=== PATIENT | female | born 1950 ===

== ENCOUNTER 2017-05-04 21:14 | Inpatient (IN) | payer MEDICARE, OTHER ==
[~2017-05-04] VITALS: Ht 167.6 cm; Wt 57.2 kg
--- NOTE | 2017-05-04 21:20 | NUR ---
MEDICALLY CLEARED BY DR WILSON
[2017-05-04] MEDS ORDERED: FAMO-132 PO (21:29)
[2017-05-04] MEDS ORDERED: QUET300T2 PO ×2 (21:29)
[2017-05-04] MEDS ORDERED: QUET25TA PO (21:29)
[2017-05-04] MEDS ORDERED: LEVO50TA8 PO (21:29)
[2017-05-04] MEDS ORDERED: ASPI81TA31 PO (21:29)
[2017-05-04] MEDS ORDERED: ATOR80TA PO (21:29)
--- NOTE | 2017-05-04 21:46 | NUR ---
TRANSFERED [place] [facility] [place] [facility]
--- NOTE | 2017-05-04 21:50 | NUR ---
Received to care, 58yo female placed on a 5150 hold for GD. Patient is awake and oriented x1. Patient is resting comfortably in her bed.. Patients skin is warm pink dry and, intact. Patient reports no pain or discomfort. v/s are WNL. PERRLA. No signs of distress or discomfort. Breathing is unlabored. Patient is ambulatory with unsteady gate. Bed alarm is on. Bed in lowest position with 2/4 side rails up for safety. Will continue to monitor
[2017-05-04] MEDS ORDERED: LORAZEPAM 0.5 MG TABLET PO PRN (23:00)
[2017-05-05 00:24] VITALS: BP 140/95
[2017-05-05] MEDS ORDERED: ZOLPIDEM 5 MG TABLET ONE (01:22)
[2017-05-05] MEDS: ZOLPIDEM 5 MG TABLET PO PRN ×2 (01:31→22:21)
--- NOTE | 2017-05-05 02:32 | NUR ---
AT APPROX 0030, MEDICATION WERE RECONCILE WITH DR. RIVERA (DR SKIN LIFTER BACON FOR REBECCA).
[2017-05-05 07:30] VITALS: BP 147/72
[2017-05-05] MEDS: AMLODIPINE 5 MG TABLET PO SCH (10:30)
[2017-05-05] MEDS: FAMOTIDINE 20 MG TABLET PO SCH ×2 (10:31→20:03)
[2017-05-05] MEDS ORDERED: LORAZEPAM 0.5 MG TABLET PO PRN (12:00)
[2017-05-05] MEDS: QUETIAPINE FUMARATE 25 MG TABLET PO SCH ×2 (12:51→16:47)
[2017-05-05 15:16] VITALS: BP 129/83
[2017-05-05] MEDS: QUETIAPINE FUMARATE 200 MG TABLET PO SCH (20:03)
[2017-05-05] MEDS: ATORVASTATIN 40 MG TABLET PO SCH (20:03)
[2017-05-05] MEDS ORDERED: Medication Not On Formulary EA (Atorvastatin Calcium (Lipitor) 80 MG) PO SCH (21:00)
--- NOTE | 2017-05-05 21:12 | NUR ---
PATIENT RECEIVED IN LORI CHAIR SECURE, ALERT ORIENTED X1 TO NAME ONLY, CONFUSED DELUSIONAL RESPONDS TO INTERNAL STIMULI. YELLING/SCREAMING OCCASIONALLY, REDIRECTABLE. PATIENT COMPLAINT WITH MEDICATION. POOR SAFETY AWARENESS, POOR JUDGEMENT. NO AGGRESSIVE OR COMBATIVE BEHAVIOR NOTED WILL CONTINUE TO MONITOR AND REDIRECT NEEDED.
[2017-05-05 22:03] VITALS: BP 122/83
[2017-05-05] MEDS: LORAZEPAM 1 MG TABLET PO PRN (23:22)
[2017-05-06 07:23] LABS: BASOPHILS % (AUTO) 0.7 % (0.0-2.0); EOSINOPHILS # (AUTO) 0.2 K/uL (0.0-0.7); EOSINOPHILS % (AUTO) 2.8 % (0.0-7.0); HEMATOCRIT 41.8 % (37-47); LYMPHOCYTES # (AUTO) 1.1 K/UL (0.8-4.8); LYMPHOCYTES % (AUTO) 17.4 % (20.5-51.5); MEAN CORPUSCULAR HGB CONC 33 g/dL (32.0-37.0); MEAN CORPUSCULAR VOLUME 89.9 FL (81.0-99.0); MONOCYTES # (AUTO) 0.6 K/UL (0.1-1.30); MONOCYTES % (AUTO) 9.5 % (0.0-11.0); NEUTROPHILS # (AUTO) 4.4 K/UL (1.8-8.9); NEUTROPHILS % (AUTO) 69.6 % (38.5-71.5); PLATELET COUNT (AUTO) 218 K/UL (150-450); RED BLOOD CELL COUNT(AUTO) 4.66 MIL/UL (4.2-5.4); WHITE BLOOD COUNT (AUTO) 6.3 K/UL (4.0-11.2)
[2017-05-06 07:30] VITALS: BP 127/71
[2017-05-06 07:59] LABS: BILIRUBIN,TOTAL 0.5 mg/dL (0.2-1.0); CREATININE 0.7 mg/dL (0.6-1.3); MAGNESIUM 1.7 mg/dL (1.8-2.4); PHOSPHOROUS 3.7 mg/dL (2.5-4.9); TOTAL PROTEIN, SERUM 6.8 g/dL (6.4-8.2)
[2017-05-06 08:05] LABS: POTASSIUM 2.8 mmol/L (3.5-5.1)
--- NOTE | 2017-05-06 08:13 | NUR ---
LAB CALLED TO INFORM PT'S POTASSIUM LEVEL OF 2.8. PT IS ASYMPTOMATIC AT THIS TIME. CALLED [facility], STATED THEY WILL PAGE DR. HATHAWAY AND HE WILL CALL BACK.
[2017-05-06 08:36] LABS: THYROID STIMULATING HORMONE 1.91 mIU/mL (0.358-3.740)
--- NOTE | 2017-05-06 09:22 | NUR ---
DR. HATHAWAY CALLED BACK WITH ORDER FOR 40MEQ POTASSIUM ONE DOSE TO BE GIVEN NOW AND ANOTHER IN 4 HOURS. NOTED AND WILL CARRY OUT. PT REMAINS ASYMPTOMATIC.
[2017-05-06] MEDS: ASPIRIN 81 MG TAB.CHEW PO SCH (09:24)
[2017-05-06] MEDS: FAMOTIDINE 20 MG TABLET PO SCH ×2 (09:24→20:00)
[2017-05-06] MEDS: AMLODIPINE 5 MG TABLET PO SCH (09:24)
[2017-05-06] MEDS: QUETIAPINE FUMARATE 25 MG TABLET PO SCH ×2 (09:24→17:16)
[2017-05-06] MEDS: LEVOTHYROXINE SODIUM 50 MCG TABLET PO SCH (09:25)
[2017-05-06] MEDS: POTASSIUM CHLORIDE 20 MEQ TAB.PRT.SR PO SCH ×2 (09:45→15:32)
[2017-05-06] MEDS ORDERED: POTASSIUM CHLORIDE 20 MEQ TAB.PRT.SR PO ONE (10:15)
[2017-05-06] MEDS ORDERED: MAGNESIUM OXIDE 400 MG TABLET PO ONE (10:15)
[2017-05-06] MEDS: LORAZEPAM 1 MG TABLET PO PRN ×2 (11:19→16:42)
--- NOTE | 2017-05-06 11:23 | NUR ---
PT IS VERY CONFUSED, DELUSIONAL, HALLUCINATING AT THIS TIME. CURRENTLY ON LORI CHAIR, SLIDING OFF ONTO THE FLOOR MULTIPLE TIMES. YELLING/SCREAMING EPISODES. MAKING NONSENSICAL REMARKS "WHERE IS THAT CAT IN THE BAG?" AND " YOU GAVE ME CANCER TODAY." PT IS UNREDIRECTABLE. CAN AMBULATE BUT WITH UNSTEADY GAIT. WILL GO INTO OTHER PT'S ROOMS. 1:1 SITTER ORDERED.
[2017-05-06 16:38] VITALS: BP 135/83
[2017-05-06] MEDS: QUETIAPINE FUMARATE 200 MG TABLET PO SCH (20:00)
[2017-05-06] MEDS: ATORVASTATIN 40 MG TABLET PO SCH (20:00)
[2017-05-06 20:03] LABS: *BILIRUBIN,URIN NEGATIVE (NEGATIVE); *BLOOD, URINE 1+ (NEGATIVE); *CLARITY,URINE CLEAR (CLEAR); *COLOR,URINE YELLOW (YELLOW); *KETONES,URINE NEGATIVE (NEGATIVE); *PROTEIN,URINE NEGATIVE (NEGATIVE); *UROBILINOGEN,URINE 0.2 E.U./dl (NORMAL); LEUKOCYTE ESTERASE ,URINE NEGATIVE (NEGATIVE); NITRITE, URINE NEGATIVE (NEGATIVE); UGLUCOSE NEGATIVE (NEGATIVE)
[2017-05-06 20:12] VITALS: BP 134/77
[2017-05-06 20:17] LABS: BACTERIA,URINE NONE SEEN /HPF (NONE SEEN); SQUAMOUS EPITHELIAL CELL,UR FEW /HPF (NONE SEEN); WBC,URINE 0-3 /HPF (0-3)
--- NOTE | 2017-05-06 20:26 | NUR ---
PATIENT RECEIVED IN LORI CHAIR SECURE, ALERT ORIENTED X1 TO NAME ONLY, CONFUSED DELUSIONAL RESPONDS TO INTERNAL STIMULI. PATIENT REMAINS WITH A 1:1 SITTER FOR SAFETY. YELLING/SCREAMING OCCASIONALLY, REDIRECTABLE. PATIENT COMPLAINT WITH MEDICATION. POOR SAFETY AWARENESS, POOR JUDGEMENT. NO AGGRESSIVE OR COMBATIVE BEHAVIOR NOTED WILL CONTINUE TO MONITOR AND REDIRECT NEEDED.
[2017-05-06] MEDS: ZOLPIDEM 5 MG TABLET PO PRN (22:47)
[2017-05-07] MEDS: MAG HYDROX/AL HYDROX/SIMETH 30 ML LIQUID UDC PO PRN (05:12)
[2017-05-07] MEDS: LEVOTHYROXINE SODIUM 50 MCG TABLET PO SCH (06:11)
[2017-05-07 07:30] VITALS: BP 149/88
[2017-05-07] MEDS: AMLODIPINE 5 MG TABLET PO SCH (09:00)
[2017-05-07] MEDS: FAMOTIDINE 20 MG TABLET PO SCH ×2 (10:05→20:35)
[2017-05-07] MEDS: QUETIAPINE FUMARATE 25 MG TABLET PO SCH ×2 (10:05→18:07)
[2017-05-07] MEDS: ASPIRIN 81 MG TAB.CHEW PO SCH (10:05)
[2017-05-07] MEDS: LORAZEPAM 1 MG TABLET PO PRN (10:05)
[2017-05-07] MEDS: ACETAMINOPHEN 325 MG TABLET PO PRN (10:05)
--- NOTE | 2017-05-07 14:46 | NUR ---
Initial discharge instructions: The patient was reportedly living at home independently in [facility]. SW will speak with the patient and MD regarding most appropriate discharge plans. SS will form a safe and proper discharge.
[2017-05-07 16:29] VITALS: BP 110/69
[2017-05-07 19:30] VITALS: BP 131/68
[2017-05-07] MEDS: ATORVASTATIN 40 MG TABLET PO SCH (20:35)
[2017-05-07] MEDS: QUETIAPINE FUMARATE 200 MG TABLET PO SCH (20:35)
--- NOTE | 2017-05-08 00:49 | NUR ---
on 05/07/17 at approx 2325, patient complained of right sided mid-abdominal pain. Patient was unable to give pain intensity scale. At approx 2330 a message was left to Dr. Mclaughlin re: patient. Awaiting for MD to call back. we will continue to monitor
[2017-05-08] MEDS: LEVOTHYROXINE SODIUM 50 MCG TABLET PO SCH (07:01)
[2017-05-08 07:30] VITALS: BP 135/76
[2017-05-08] MEDS: FAMOTIDINE 20 MG TABLET PO SCH ×2 (09:26→20:42)
[2017-05-08] MEDS: QUETIAPINE FUMARATE 25 MG TABLET PO SCH ×3 (09:27→17:07)
[2017-05-08] MEDS: ASPIRIN 81 MG TAB.CHEW PO SCH (09:27)
[2017-05-08] MEDS: AMLODIPINE 5 MG TABLET PO SCH (09:27)
--- NOTE | 2017-05-08 12:56 | NUR ---
GPS/RN- DR FREDA PAN HERE TO SEE PATIENT, DISCUSSED LABS FROM 05/06/17, DECREASED POTASSIUM AND MAG, REPLACED ON SAME DAY, ORDERS RECVD FOR AM LABS IN MORNING.
[2017-05-08 16:00] VITALS: BP 117/84
[2017-05-08 19:54] VITALS: BP 125/80
[2017-05-08] MEDS: QUETIAPINE FUMARATE 200 MG TABLET PO SCH (20:42)
[2017-05-08] MEDS: ATORVASTATIN 40 MG TABLET PO SCH (20:42)
[2017-05-09] MEDS: LEVOTHYROXINE SODIUM 50 MCG TABLET PO SCH (06:54)
[2017-05-09 07:30] VITALS: BP 104/60
--- NOTE | 2017-05-09 08:46 | NUR ---
GPS/RN- patient refused labs this am, agreed to do labs at this time. reordered labs.
[2017-05-09] MEDS: AMLODIPINE 5 MG TABLET PO SCH (09:00)
[2017-05-09 09:23] LABS: CREATININE 0.9 mg/dL (0.6-1.3); MAGNESIUM 1.5 mg/dL (1.8-2.4); POTASSIUM 4.2 mmol/L (3.5-5.1)
[2017-05-09] MEDS: FAMOTIDINE 20 MG TABLET PO SCH ×2 (09:30→20:26)
[2017-05-09] MEDS: ASPIRIN 81 MG TAB.CHEW PO SCH (09:30)
[2017-05-09] MEDS: QUETIAPINE FUMARATE 25 MG TABLET PO SCH ×3 (09:31→17:43)
--- NOTE | 2017-05-09 11:56 | NUR ---
GPS/RN- Dr Asher Mclaughlin here to see patient informed of labs today, Mag 1.5, verbal orders received for Magnesium Oxide 800mg BID for 3 days. orders repeated back to
[2017-05-09 16:00] VITALS: BP 129/82
--- NOTE | 2017-05-09 16:46 | NUR ---
PT RECALLED HAVING HER SON'S NUMBER IN HER PHONE. REGIONAL SAFETY MANAGER NURSE WAS ABLE TO FIND A NUMBER FOR [facility] ([phone] AND [phone]). CALLED BOTH AND LEFT A MESSAGE.
[2017-05-09] MEDS: MAGNESIUM OXIDE 400 MG TABLET PO SCH (17:43)
[2017-05-09] MEDS: QUETIAPINE FUMARATE 200 MG TABLET PO SCH (20:26)
[2017-05-09] MEDS: ATORVASTATIN 40 MG TABLET PO SCH (20:26)
[2017-05-09 21:13] VITALS: BP 131/87
[2017-05-10] MEDS: LEVOTHYROXINE SODIUM 50 MCG TABLET PO SCH (06:22)
[2017-05-10 07:30] VITALS: BP 120/74
[2017-05-10] MEDS: AMLODIPINE 5 MG TABLET PO SCH (09:23)
[2017-05-10] MEDS: QUETIAPINE FUMARATE 25 MG TABLET PO SCH ×3 (09:23→16:52)
[2017-05-10] MEDS: FAMOTIDINE 20 MG TABLET PO SCH ×2 (09:23→20:07)
[2017-05-10] MEDS: MAGNESIUM OXIDE 400 MG TABLET PO SCH ×2 (09:23→16:51)
[2017-05-10] MEDS: ASPIRIN 81 MG TAB.CHEW PO SCH (09:23)
[2017-05-10 15:00] VITALS: BP 119/76
[2017-05-10] MEDS: ATORVASTATIN 40 MG TABLET PO SCH (20:06)
[2017-05-10] MEDS: QUETIAPINE FUMARATE 100 MG TABLET PO SCH (20:07)
[2017-05-10 20:49] VITALS: BP 130/73
[2017-05-10] MEDS ORDERED: QUETIAPINE FUMARATE 200 MG TABLET PO SCH (21:00)
[2017-05-11] MEDS: ZOLPIDEM 5 MG TABLET PO PRN (01:46)
[2017-05-11] MEDS: MAG HYDROX/AL HYDROX/SIMETH 30 ML LIQUID UDC PO PRN (01:46)
[2017-05-11] MEDS: LEVOTHYROXINE SODIUM 50 MCG TABLET PO SCH (06:33)
[2017-05-11 07:30] VITALS: BP 130/81
[2017-05-11] MEDS: FAMOTIDINE 20 MG TABLET PO SCH ×2 (08:06→23:56)
[2017-05-11] MEDS: MAGNESIUM OXIDE 400 MG TABLET PO SCH ×2 (08:06→17:18)
[2017-05-11] MEDS: AMLODIPINE 5 MG TABLET PO SCH (08:07)
[2017-05-11] MEDS: ASPIRIN 81 MG TAB.CHEW PO SCH (08:07)
[2017-05-11] MEDS: QUETIAPINE FUMARATE 25 MG TABLET PO SCH ×3 (08:07→17:18)
[2017-05-11 16:41] VITALS: BP 104/72
[2017-05-11 20:51] VITALS: BP 110/66
[2017-05-11] MEDS: ATORVASTATIN 40 MG TABLET PO SCH (23:56)
[2017-05-11] MEDS: QUETIAPINE FUMARATE 100 MG TABLET PO SCH (23:57)
[2017-05-12] MEDS: LORAZEPAM 1 MG TABLET PO PRN (04:12)
[2017-05-12] MEDS: LEVOTHYROXINE SODIUM 50 MCG TABLET PO SCH (07:22)
[2017-05-12 07:30] VITALS: BP 140/75
[2017-05-12] MEDS: ASPIRIN 81 MG TAB.CHEW PO SCH (08:53)
[2017-05-12] MEDS: AMLODIPINE 5 MG TABLET PO SCH (08:53)
[2017-05-12] MEDS: MAGNESIUM OXIDE 400 MG TABLET PO SCH (08:53)
[2017-05-12] MEDS: FAMOTIDINE 20 MG TABLET PO SCH ×2 (08:54→20:20)
[2017-05-12] MEDS: QUETIAPINE FUMARATE 25 MG TABLET PO SCH ×3 (08:54→17:00)
[2017-05-12 16:00] VITALS: BP 92/56
[2017-05-12 20:06] VITALS: BP 106/65
[2017-05-12] MEDS: ATORVASTATIN 40 MG TABLET PO SCH (20:20)
[2017-05-12] MEDS: QUETIAPINE FUMARATE 100 MG TABLET PO SCH (20:25)
--- NOTE | 2017-05-12 22:21 | NUR ---
pt is very visible on the unit, continues to come to the station, requiring frequent redirection, seroquel initially held due to low blood pressure, when rechecked at 2200, bp 113/67, meds given. will continue to monitor closely.
[2017-05-13] MEDS: LEVOTHYROXINE SODIUM 50 MCG TABLET PO SCH (06:37)
[2017-05-13 07:45] VITALS: BP 118/74
[2017-05-13] MEDS: ASPIRIN 81 MG TAB.CHEW PO SCH (08:21)
[2017-05-13] MEDS: FAMOTIDINE 20 MG TABLET PO SCH ×2 (08:21→20:43)
[2017-05-13] MEDS: AMLODIPINE 5 MG TABLET PO SCH (08:21)
[2017-05-13] MEDS: QUETIAPINE FUMARATE 25 MG TABLET PO SCH (08:21)
[2017-05-13 08:22] LABS: CREATININE 0.9 mg/dL (0.6-1.3); PHOSPHOROUS 4.5 mg/dL (2.5-4.9); POTASSIUM 4.6 mmol/L (3.5-5.1)
[2017-05-13 15:50] VITALS: BP 109/68
--- NOTE | 2017-05-13 15:59 | NUR ---
Patient pacing in and out of her room and in the dayroom, spend time in dayroom watching tv with peers, interacts well with peers and staff, pleasant on approach. Denies suicidal/homicidal ideations, denies hearing voices. Medication compliant and cooperative, no c/o pain or discomfort noted, ate 75% each meal. Will continue to monitor for safety and needs.
[2017-05-13] MEDS ORDERED: QUETIAPINE FUMARATE 25 MG TABLET PO SCH (17:00)
[2017-05-13] MEDS: ATORVASTATIN 40 MG TABLET PO SCH (20:43)
[2017-05-13] MEDS: QUETIAPINE FUMARATE 100 MG TABLET PO SCH (20:44)
[2017-05-13 20:57] VITALS: BP 130/77
[2017-05-14] MEDS: ZOLPIDEM 5 MG TABLET PO PRN (00:33)
[2017-05-14] MEDS: LEVOTHYROXINE SODIUM 50 MCG TABLET PO SCH (06:39)
[2017-05-14 07:30] VITALS: BP 110/70
[2017-05-14] MEDS: AMLODIPINE 5 MG TABLET PO SCH (09:23)
[2017-05-14] MEDS: ASPIRIN 81 MG TAB.CHEW PO SCH (09:23)
[2017-05-14] MEDS: QUETIAPINE FUMARATE 25 MG TABLET PO SCH (09:24)
[2017-05-14] MEDS: FAMOTIDINE 20 MG TABLET PO SCH ×2 (09:24→20:02)
[2017-05-14 16:42] VITALS: BP 125/72
--- NOTE | 2017-05-14 18:12 | NUR ---
Patient visible in dayroom watching tv with peers, pleasant on approach, interacts well with peers and staff, ate 80% meals. Medication compliant and cooperative. Will continue to monitor for safety and needs.
[2017-05-14] MEDS: QUETIAPINE FUMARATE 100 MG TABLET PO SCH (20:00)
[2017-05-14] MEDS: ATORVASTATIN 40 MG TABLET PO SCH (20:02)
[2017-05-14 21:21] VITALS: BP 137/76
--- NOTE | 2017-05-14 21:37 | NUR ---
pt is very visible on the unit, able to make her needs known, somewhat needy, but redirectable, will continue to monitor closely.
[2017-05-15] MEDS: ACETAMINOPHEN 325 MG TABLET PO PRN (01:29)
[2017-05-15] MEDS: LEVOTHYROXINE SODIUM 50 MCG TABLET PO SCH (06:19)
[2017-05-15 08:00] VITALS: BP 101/72
[2017-05-15 08:01] VITALS: BP 101/72
[2017-05-15] MEDS: AMLODIPINE 5 MG TABLET PO SCH (08:01)
[2017-05-15] MEDS: ASPIRIN 81 MG TAB.CHEW PO SCH (08:01)
[2017-05-15] MEDS: FAMOTIDINE 20 MG TABLET PO SCH (08:02)
[2017-05-15] MEDS: QUETIAPINE FUMARATE 25 MG TABLET PO SCH (08:02)
--- NOTE | 2017-05-15 08:42 | NUR ---
DC Note: The patient will be discharged today to [facility] ([facility]) [[place] [place] [address] ] via ambulance. Spoke with Cristina in admissions at the facility who stated that they will be accepting the patient today. CLAUDIA spoke with the patient and she is aware and agreeable with the discharge plan. CLAUDIA spoke with the patient's son Nigel Santoro and he is aware and agreeable with the discharge plan. The patient will follow-up at the facility with javascript web developer Dr. Tamera Gupta and psychiatrist Dr. Cayetano Hernandez.
--- NOTE | 2017-05-15 10:40 | NUR ---
DISCHARGED PT TO [facility] VIA AMBULANCE. BELONGINGS AND DISCHARGE INSTRUCTIONS GIVEN TO PT. VERBALIZED UNDERSTANDING. NO HALLUCINATIONS, DENIES SI/HI. NOT IN ACUTE DISTRESS. REPORT GIVEN TO BECK AT THE FACILITY.
== END 2017-05-15 10:45 | DRG 885 ==
LOC: ER 21:14 → GPS 21:38
PROVIDERS: ADMIT Psychiatry & Neurology Psychiatry; ATTEND Internal Medicine
DX: F23 Brief psychotic disorder (principal); G93.41 Metabolic encephalopathy; E44.0 Moderate protein-calorie malnutrition; F03.90 Unspecified dementia, unspecified severity, without behavioral disturbance, psychotic disturbance, mood disturbance, and anxiety; I10 Essential (primary) hypertension; E78.5 Hyperlipidemia, unspecified; K21.9 Gastro-esophageal reflux disease without esophagitis; Z79.899 Other long term (current) drug therapy; E03.9 Hypothyroidism, unspecified; Z68.20 Body mass index [BMI] 20.0-20.9, adult; Z86.59 Personal history of other mental and behavioral disorders
CPT/HCPCS: 36415; 83735; 84100; 84443; 85025; 87086; 97110; 97116; 97161; 97530; A4663